=== PATIENT | male | born 1960 | race Caucasian/White ===

== ENCOUNTER 2023-07-28 15:59 | Emergency (ER) | payer BC ==
[~2023-07-28] VITALS: Ht 180.3 cm; Wt 85.3 kg
[2023-07-28 16:31] VITALS: TEMP 99.2
[2023-07-28 17:46] LABS: BASOPHILS % (AUTO) 0.6 % (0-1); EOSINOPHILS # (AUTO) 0.2 X10'3 (0-0.9); EOSINOPHILS % (AUTO) 2.2 % (0-6); HEMATOCRIT 44.8 % (42.0-52.0); LYMPHOCYTES % (AUTO) 13.2 % (21-51); MEAN CORPUSCULAR HEMOGLOBIN 30.8 PG (27.0-31.0); MEAN CORPUSCULAR HGB CONC 33.4 g/dL (33.0-36.5); MEAN CORPUSCULAR VOLUME 92.2 FL (78-98); MEAN PLATELET VOLUME 10.1 FL (7.4-10.4); MONOCYTES # (AUTO) 0.8 X10'3 (0-0.9); MONOCYTES % (AUTO) 10.8 % (2-12); NEUTROPHILS # (AUTO) 5.3 X10'3 (1.8-7.7); NEUTROPHILS % (AUTO) 73.2 % (42-75); PLATELET COUNT 282 X10'3 (140-440); RED BLOOD COUNT 4.86 X10'6 (4.70-6.10); RED CELL DISTRIBUTION WIDTH 12.9 % (11.5-14.5); WHITE BLOOD COUNT 7.3 X10'3 (4.5-11.0)
[2023-07-28 17:46] LABS: BILIRUBIN,URINE NEGATIVE (Neg); CLARITY,URINE CLEAR (Clear); COLOR,URINE YELLOW (Yellow); GLUCOSE, URINE NEGATIVE (Neg); KETONES,URINE NEGATIVE (Neg); LEUKOCYTE ESTERASE ,URINE NEGATIVE (Neg); NITRITES, URINE NEGATIVE (Neg); OCCULT BLOOD,URINE NEGATIVE (Neg); PROTEIN,URINE NEGATIVE (Neg); UROBILINOGEN,URINE 0.2 E.U/dL (0.2-1.0)
[2023-07-28 17:54] LABS: UA COLLECTION TYPE VOIDED
[2023-07-28 17:58] LABS: ALANINE AMINOTRANSFERASE 21 U/L (12-78); ALBUMIN 3.1 G/DL (3.4-5.0); ALBUMIN/GLOBULIN RATIO 0.7 (1.1-1.5); ALKALINE PHOSPHATASE 96 IU/L (46-116); ANION GAP 7 (8-16); ASPARTATE AMINO TRANSFERASE 23 U/L (10-37); BILIRUBIN,TOTAL 0.6 MG/DL (0.1-1.0); BLOOD UREA NITROGEN 5 MG/DL (7-18); CALCIUM 9.9 MG/DL (8.5-10.1); CHLORIDE 100 MMOL/L (99-107); CREATININE 0.83 MG/DL (0.60-1.10); GLUCOSE 102 MG/DL (70-104); LIPASE 23 U/L (16-77); POTASSIUM 3.6 MMOL/L (3.5-5.1); SODIUM 138 MMOL/L (135-145); TOTAL CARBON DIOXIDE 31.2 MMOL/L (24-32); TOTAL PROTEIN 7.4 G/DL (6.4-8.2); eCRCL 98 ML/MIN; eGFR > 90 ML/MIN
[2023-07-28 18:05] LABS: AMYLASE 28 U/L (25-115)
[2023-07-28] MEDS ORDERED: iohexol 300mg/ml 100ml inj. ONE (18:23)
[2023-07-28 20:40] VITALS: RESP 18
[2023-07-28 23:48] VITALS: BP 129/85; PULSE 81; O2SAT 96
== END 2023-07-28 23:49 | disposition home or self-care (01) ==
LOC: ER 16:00
DX: R10.12 Left upper quadrant pain (principal); F17.200 Nicotine dependence, unspecified, uncomplicated
CPT/HCPCS: 36415; 71045; 74177; 80053; 81003; 82150; 83690; 85025; 99285; J3490; Q9967

== ENCOUNTER 2023-07-29 21:19 | Emergency (ER) | payer BC ==
[~2023-07-29] VITALS: Ht 180.3 cm; Wt 86.8 kg
[2023-07-29 21:50] LABS: BASOPHILS # (AUTO) 0.1 X10'3 (0-0.2); BASOPHILS % (AUTO) 1.1 % (0-1); EOSINOPHILS # (AUTO) 0.3 X10'3 (0-0.9); EOSINOPHILS % (AUTO) 4.1 % (0-6); HEMATOCRIT 41.1 % (42.0-52.0); HEMOGLOBIN 13.8 g/dl (14.0-17.9); LYMPHOCYTES # (AUTO) 0.9 X10'3 (1.1-4.8); LYMPHOCYTES % (AUTO) 13.2 % (21-51); MEAN CORPUSCULAR HEMOGLOBIN 30.4 PG (27.0-31.0); MEAN CORPUSCULAR HGB CONC 33.6 g/dL (33.0-36.5); MEAN CORPUSCULAR VOLUME 90.2 FL (78-98); MONOCYTES # (AUTO) 0.9 X10'3 (0-0.9); MONOCYTES % (AUTO) 12.9 % (2-12); NEUTROPHILS # (AUTO) 4.7 X10'3 (1.8-7.7); NEUTROPHILS % (AUTO) 68.7 % (42-75); PLATELET COUNT 298 X10'3 (140-440); RED BLOOD COUNT 4.55 X10'6 (4.70-6.10); RED CELL DISTRIBUTION WIDTH 12.6 % (11.5-14.5); WHITE BLOOD COUNT 6.9 X10'3 (4.5-11.0)
[2023-07-29 21:51] LABS: ALANINE AMINOTRANSFERASE 19 U/L (12-78); ALBUMIN 2.7 G/DL (3.4-5.0); ALBUMIN/GLOBULIN RATIO 0.7 (1.1-1.5); ALKALINE PHOSPHATASE 87 IU/L (46-116); ANION GAP 7 (8-16); ASPARTATE AMINO TRANSFERASE 19 U/L (10-37); BILIRUBIN,TOTAL 0.5 MG/DL (0.1-1.0); BLOOD UREA NITROGEN 6 MG/DL (7-18); BUN/CREATININE RATIO 7.2 (10.0-20.0); CALCIUM 9.1 MG/DL (8.5-10.1); CHLORIDE 99 MMOL/L (99-107); CREATININE 0.83 MG/DL (0.60-1.10); GLUCOSE 125 MG/DL (70-104); LIPASE 24 U/L (16-77); POTASSIUM 3.7 MMOL/L (3.5-5.1); SODIUM 134 MMOL/L (135-145); TOTAL CARBON DIOXIDE 28.4 MMOL/L (24-32); TOTAL PROTEIN 6.5 G/DL (6.4-8.2); eCRCL 98 ML/MIN; eGFR > 90 ML/MIN
[2023-07-30] MEDS ORDERED: mag hydrox/Alum hydrox/simeth 30ml oral suspension PO ONE (00:55)
[2023-07-30] MEDS ORDERED: mag hydrox/Alum hydrox/simeth 30ml oral suspension ONE (01:00)
[2023-07-30 01:11] LABS: BILIRUBIN,URINE NEGATIVE (Neg); CLARITY,URINE CLEAR (Clear); COLOR,URINE YELLOW (Yellow); GLUCOSE, URINE NEGATIVE (Neg); KETONES,URINE NEGATIVE (Neg); LEUKOCYTE ESTERASE ,URINE NEGATIVE (Neg); NITRITES, URINE NEGATIVE (Neg); OCCULT BLOOD,URINE NEGATIVE (Neg); PROTEIN,URINE NEGATIVE (Neg); UROBILINOGEN,URINE 0.2 E.U/dL (0.2-1.0)
[2023-07-30] MEDS: LIDOcaine Viscous 15ml cup MM PRN (01:19)
[2023-07-30 01:30] LABS: UA COLLECTION TYPE CLN CATCH MIDSTREAM
[2023-07-30] MEDS ORDERED: DICY10CA88 PO (01:30)
[2023-07-30 01:55] VITALS: BP 140/88; PULSE 79; TEMP 98.1; O2SAT 95
[2023-07-30 01:59] VITALS: RESP 16
== END 2023-07-30 02:04 | disposition home or self-care (01) ==
LOC: ER 21:19
DX: K29.60 Other gastritis without bleeding (principal); Z88.8 Allergy status to other drugs, medicaments and biological substances; Z79.899 Other long term (current) drug therapy
CPT/HCPCS: 36415; 80053; 81003; 83690; 85025; 99283

== ENCOUNTER 2023-08-11 08:54 | Outpatient (CLI) | payer BC ==
[~2023-08-11 08:54] MED LIST: DICY10CA88 PO
== END 2023-08-11 23:59 | disposition home or self-care (01) ==
LOC: RAD 08:54
PROVIDERS: ATTEND Nurse Practitioner Family
DX: K74.60 Unspecified cirrhosis of liver (principal); R18.8 Other ascites; K80.20 Calculus of gallbladder without cholecystitis without obstruction; R10.9 Unspecified abdominal pain; K63.9 Disease of intestine, unspecified; R68.81 Early satiety; R14.0 Abdominal distension (gaseous)
CPT/HCPCS: 76700

== ENCOUNTER 2023-08-13 07:41 | Day surgery (SDC) | payer BC ==
[~2023-08-13] VITALS: Ht 180.3 cm; Wt 79.9 kg
[2023-08-13 07:52] VITALS: BP 142/94; PULSE 78; RESP 16; TEMP 97.8; O2SAT 97
[2023-08-13] MEDS ORDERED: albumin 25% 100mL bottle x 1 IV PRN (08:00)
[2023-08-13] MEDS ORDERED: PANT40TA54 PO (08:15)
[2023-08-13] MEDS ORDERED: HYOS-26 PO (08:15)
[2023-08-13] MEDS ORDERED: SPIR50TA5 PO (08:15)
[2023-08-13] MEDS ORDERED: ALBU10.7 INH (08:21)
[2023-08-13] MEDS ORDERED: TEST1.257 TOP (08:21)
[2023-08-13] MEDS ORDERED: ANAS1TAB24 PO (08:21)
[2023-08-13] MEDS ORDERED: THYR90TA PO (08:21)
[2023-08-13] MEDS ORDERED: DICY-19 PO (08:25)
[2023-08-13] MEDS ORDERED: MONT-40 PO (08:25)
[2023-08-13] MEDS ORDERED: SILD20TA2 PO (08:25)
[2023-08-13] MEDS ORDERED: FLUT1BLS11 INH (08:30)
[2023-08-13 09:35] VITALS: BP 141/91; PULSE 76; RESP 14; O2SAT 97
[2023-08-13 09:45] VITALS: BP 124/75; PULSE 72; RESP 14; O2SAT 96
[2023-08-13 10:00] VITALS: BP 127/77; PULSE 73; RESP 14; O2SAT 96
[2023-08-13 10:15] VITALS: BP 115/85; PULSE 76; RESP 16; O2SAT 97
== END 2023-08-13 10:40 | disposition home or self-care (01) ==
LOC: SSTAY O 07:41
PROVIDERS: ATTEND Radiology Vascular & Interventional Radiology
DX: R18.8 Other ascites (principal); F41.9 Anxiety disorder, unspecified; J45.909 Unspecified asthma, uncomplicated; K21.9 Gastro-esophageal reflux disease without esophagitis; E78.5 Hyperlipidemia, unspecified; E03.9 Hypothyroidism, unspecified; N40.0 Benign prostatic hyperplasia without lower urinary tract symptoms; F90.9 Attention-deficit hyperactivity disorder, unspecified type; G25.81 Restless legs syndrome; Z86.73 Personal history of transient ischemic attack (TIA), and cerebral infarction without residual deficits; Z98.890 Other specified postprocedural states; Z72.89 Other problems related to lifestyle; Z88.8 Allergy status to other drugs, medicaments and biological substances; Z79.899 Other long term (current) drug therapy
CPT/HCPCS: 49083; C1729; A6258